=== PATIENT | male | born 1985 | race Caucasian/White ===

== ENCOUNTER 2016-10-06 10:27 | Inpatient (IN) | payer MEDICAID ==
[2016-10-06] MEDS ORDERED: IOPAMIDOL 300 (61%) 100 ML VIAL IV ONE (10:28)
[2016-10-06] MEDS ORDERED: SODIUM CHLORIDE 0.9% 1,000 ML ONE (11:32)
[2016-10-06] MEDS ORDERED: HYDROMORPHONE HCL 1 MG/ML SYRINGE ONE (11:32)
[2016-10-06] MEDS ORDERED: KETOROLAC TROMETHAMINE 30 MG/ML 1 ML VIAL ONE (11:32)
[2016-10-06] MEDS ORDERED: ONDANSETRON 4 MG/2ML 2 ML VIAL ONE (11:32)
[2016-10-06 11:44] LABS: ABSOLUTE NEUTROPHIL COUNT 11.1 K/mm3 (1.8-7.7); BASO % 0.1 % (0.2-1.0); EOS # 0.1 (0.0-0.5); EOS % 0.4 % (0.9-2.9); HEMATOCRIT 38.8 % (32.0-52.0); HEMOGLOBIN 13.1 gm/l (14.0-18.0); IMM NEUT # 0.1 K/mm3 (0-0.2); IMM NEUT% 0.5 % (0-1); LYMPH # 1.3 (1.0-4.8); LYMPH % 9.4 % (15-45); MEAN CELL VOLUME 92.8 fl (80.0-94.0); MEAN CORPUSCULAR HEMOGLOBIN 31.3 pg (27.0-31.0); MEAN CORPUSCULAR HGB CONC 33.8 g/dl (33.0-37.0); MEAN PLATELET VOLUME 9.8 fl (7.4-10.4); MONO # 1.3 (0.0-0.8); MONO % 9.4 % (4-12); NEUT % 80.2 % (43-75); PLATELET COUNT 323 K/mm3 (130-400)
[2016-10-06 11:54] LABS: ALB/GLOB RATIO 0.9 (>1.0); ALBUMIN 3.7 gm/dL (3.5-5.7); CALCIUM 10.2 mg/dL (8.6-10.3)
[2016-10-06 12:02] LABS: URINE BILIRUBIN 1+ (NEGATIVE); URINE BLOOD NEGATIVE (NEGATIVE); URINE GLUCOSE (UA) NEGATIVE (NEGATIVE); URINE LEUKOCYTE ESTERASE TRACE (NEGATIVE); URINE NITRITE NEGATIVE (NEGATIVE); URINE PROTEIN 1+ (NEGATIVE); URINE UROBILINOGEN 1 mg/dL (0-1 mg/dl)
[2016-10-06 12:04] LABS: URINE APPEARANCE CLEAR; URINE COLOR AMBER
[2016-10-06 12:24] LABS: URINE BACTERIA 0; URINE EPITHELIAL CELLS 0 /hpf; URINE RBC 0 /hpf
--- NOTE | 2016-10-06 12:24 | CT ---
ABD/PELVIS W/ CON COMPARISON: None. HISTORY: 31-year-old male with left lower quadrant pain, fever, increasing pain for 3 to 4 days. Diagnosed with diverticulitis last week. Technique: No oral contrast. Intravenous injection 100 mL Isovue 3 had. Using a [employer] [address] scanner, images were obtained from the diaphragm to the floor the pelvis. An automated dose reduction technique was used to minimize patient radiation dose. Dose information: CTDIvol (mGy): 13.00 DLP(mGycm): 740.20 FINDINGS: Lung bases: Normal. Inferior mediastinum and heart: Normal. Liver: Normal. Gallbladder:Normal. Bile ducts: Normal. Pancreas: Normal. Spleen: Normal. Adrenal glands: Normal. Kidneys: Normal. Ureters: Normal Urinary bladder: Normal. Prostate gland and seminal vesicles: Normal. Blood vessels: Normal Lymph nodes: Normal Stomach: Normal Duodenum: Normal Small intestine: Normal Appendix: Normal Colon: Sigmoid colon diverticulitis with an abscess, 5.5 x 3.5 x 3.9 cm. Abdominal wall and supporting musculature: Normal Bones: Normal IMPRESSION: Sigmoid colon diverticulitis with an abscess, 5.5 x 3.5 x 3.9 cm. The results were discussed with Boo Andujar M.D. 10/06/2016 at 12:20
[2016-10-06] MEDS ORDERED: PIPERACILLIN-TAZO PREMIX BAG 50 ML IV ONE (12:35)
[2016-10-06] MEDS ORDERED: METRONIDAZOLE 500 MG/NS 100 ML 100 ML IV ONE (12:35)
[2016-10-06 14:18] VITALS: BMI 26.5
[2016-10-06] MEDS ORDERED: SODIUM CHLORIDE 0.9% 1,000 ML IV ONE (15:43)
[2016-10-06] MEDS ORDERED: ONDANSETRON 4 MG/2ML 2 ML VIAL IV PRN (15:43)
[2016-10-06] MEDS ORDERED: ACETAMINOPHEN 325 MG TABLET PO PRN (15:43)
[2016-10-06] MEDS ORDERED: BLISTEX LIPSTICK 1 EACH TP PRN (15:43)
[2016-10-06] MEDS ORDERED: PUMP TUBING ONE (16:04)
[2016-10-06] MEDS ORDERED: HYDROMORPHONE HCL 0.5 MG/0.5 ML SYRINGE ONE (16:10)
[2016-10-06] MEDS ORDERED: HYDROMORPHONE HCL 0.5 MG/0.5 ML SYRINGE IV PRN (16:13)
[2016-10-06] MEDS: HYDROMORPHONE HCL 1 MG/ML SYRINGE IV PRN ×3 (16:14→21:06)
[2016-10-06] MEDS: D5 1/2NS 1,000 ML IV SCH ×2 (16:14→23:09)
[2016-10-06] MEDS: PIPERACILLIN-TAZO PREMIX BAG 3.375 G in Premix (D5W) 50 ml 1 EACH IV SCH (19:37)
--- NOTE | 2016-10-06 19:59 | CONS ---
HARJIT GOMEZ [id number] DATE OF SERVICE: 10/06/2016 This is an admission to [facility] and a consult for general surgery. HISTORY OF PRESENT ILLNESS: I had the pleasure of meeting Mr. Gomez today in [facility]. 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 He has no past medical history of note. He does not take any medications, other than a small amount of alcohol which he drinks socially, and has no allergies. Mr. Gomez presented to [facility] on 09/26/2016 or 09/27/2016. He was admitted to the hospital, found to have diverticulitis and was treated with a course of IV antibiotics. He was discharged home on 09/30/2016, with improvement of his symptoms, and was sent home with a prescription for Augmentin which he took until late on the 04 of October. Over the course of Mr. Gomez's treatment his pain initially resolved with initial IV antibiotics in the [facility]. He then stabilized and was determined well enough to discharge from the hospital, but on 10/02/2016 he had an increase of his pain despite treatment with Augmentin, which continues until his admission to [facility] today on 10/06/2016. PHYSICAL EXAMINATION: GENERAL: Mr. Gomez looks his stated age. ABDOMEN: Soft. He has no evidence of rebound or guarding. He does have pain to deep palpation in the left lower quadrant. CARDIAC: Normal. PULMONARY: Normal. LABS: On admission to [facility] his white count is 13.8, with a pronounced left shift. His sodium, potassium, chloride and anion gap are normal. His BUN is 6, with an estimated GFR of 112, suggesting that he has an element of dehydration, as well as slight increase in his AST and ALT. His urine dip is negative. IMAGING: Mr. Gomez has an approximately 3 1/2 x 4 cm pericolonic phlegmon in the region of the mid sigmoid. This does not appear to be matured as an abscess, and at this point I do not think it has drainable percutaneous drainage. This may develop over time. There is no evidence of free perforation or fluid within the abdominal cavity. ASSESSMENT/PLAN: I had a long discussion today with Mr. Gomez and reviewed the diagnosis of diverticulitis and the presence of his diverticular abscess. I discussed a treatment plan which includes IV antibiotics initially, with clear fluids for diet. I did discuss the need for potential emergency sigmoidectomy if his symptoms are to worsen and I reviewed the possibility of a colostomy if this was indicated. I also discussed the potential need for long-term management with a high-fiber diet and potential elective sigmoidectomy in the future if additional beds of diverticulitis were to develop. I did discuss previous episodes with Mr. Gomez and he felt that this was his first episode of diverticulitis, never having experienced the pain in the past. At this point I have admitted him to general surgery, started him on piperacillin and tazobactam, provided pain control and resuscitation for his elevated GFR and dehydration. We will follow him closely. If need be, we can proceed with surgery for a Marcus's resection if he deteriorates during his conservative management of his diverticulitis.
[2016-10-06] MEDS: SENNOSIDES 8.6 MG TABLET PO SCH (20:59)
[2016-10-06] MEDS: Heparin Sodium 5000 unit/0.5ml syringe SUB-Q SCH (21:00)
[2016-10-07] MEDS: HYDROMORPHONE HCL 1 MG/ML SYRINGE IV PRN ×3 (00:34→08:00)
[2016-10-07] MEDS: PIPERACILLIN-TAZO PREMIX BAG 3.375 G in Premix (D5W) 50 ml 1 EACH IV SCH ×4 (02:15→18:55)
[2016-10-07] MEDS: D5 1/2NS 1,000 ML IV SCH ×3 (06:03→19:35)
[2016-10-07 06:06] LABS: INR 1.04; PROTHROMBIN TIME 10.9 SECONDS (9.3-11.4)
[2016-10-07 06:11] LABS: ALB/GLOB RATIO 0.9 (>1.0); ALBUMIN 3.1 gm/dL (3.5-5.7); CALCIUM 9.4 mg/dL (8.6-10.3)
[2016-10-07] MEDS: OXYCODONE/ACETAMINOPHEN 5/325 MG TABLET PO PRN ×3 (08:00→21:27)
[2016-10-07] MEDS: Heparin Sodium 5000 unit/0.5ml syringe SUB-Q SCH ×2 (08:29→21:24)
[2016-10-07] MEDS: SENNOSIDES 8.6 MG TABLET PO SCH ×2 (08:29→21:24)
[2016-10-07] MEDS ORDERED: Heparin Sodium 5000 unit/0.5ml syringe SUB-Q SCH (13:48)
[2016-10-07] MEDS ORDERED: SODIUM CHLORIDE 0.9% FLUSH 10 ML ONE (14:23)
[2016-10-07] MEDS ORDERED: IV START KIT ONE (14:24)
[2016-10-08] MEDS: PIPERACILLIN-TAZO PREMIX BAG 3.375 G in Premix (D5W) 50 ml 1 EACH IV SCH ×2 (00:50→07:19)
[2016-10-08 05:44] LABS: ABSOLUTE NEUTROPHIL COUNT 3.6 K/mm3 (1.8-7.7); BASO % 0.7 % (0.2-1.0); EOS # 0.2 (0.0-0.5); EOS % 2.5 % (0.9-2.9); HEMATOCRIT 37.3 % (32.0-52.0); HEMOGLOBIN 12.2 gm/l (14.0-18.0); IMM NEUT% 0.7 % (0-1); LYMPH # 1.5 (1.0-4.8); LYMPH % 24.4 % (15-45); MEAN CELL VOLUME 93.7 fl (80.0-94.0); MEAN CORPUSCULAR HEMOGLOBIN 30.7 pg (27.0-31.0); MEAN CORPUSCULAR HGB CONC 32.7 g/dl (33.0-37.0); MEAN PLATELET VOLUME 9.5 fl (7.4-10.4); MONO # 0.6 (0.0-0.8); MONO % 10.4 % (4-12); NEUT % 61.3 % (43-75); PLATELET COUNT 273 K/mm3 (130-400)
[2016-10-08] MEDS: SENNOSIDES 8.6 MG TABLET PO SCH ×2 (08:53→20:35)
[2016-10-08] MEDS: Heparin Sodium 5000 unit/0.5ml syringe SUB-Q SCH ×2 (08:54→20:35)
[2016-10-08] MEDS ORDERED: CIPROFLOXACIN 500 MG TABLET PO ONE (09:44)
[2016-10-08] MEDS: D5 1/2NS 1,000 ML IV SCH (18:51)
[2016-10-08] MEDS: METRONIDAZOLE 500 MG TABLET PO SCH (20:34)
[2016-10-08] MEDS: CIPROFLOXACIN 500 MG TABLET PO SCH (20:35)
[2016-10-09 06:32] LABS: ABSOLUTE NEUTROPHIL COUNT 3.4 K/mm3 (1.8-7.7); BASO % 0.3 % (0.2-1.0); EOS # 0.1 (0.0-0.5); EOS % 1.7 % (0.9-2.9); HEMOGLOBIN 12.7 gm/l (14.0-18.0); IMM NEUT # 0.1 K/mm3 (0-0.2); IMM NEUT% 1.2 % (0-1); LYMPH # 1.6 (1.0-4.8); LYMPH % 27.7 % (15-45); MEAN CELL VOLUME 91.6 fl (80.0-94.0); MEAN CORPUSCULAR HEMOGLOBIN 30.6 pg (27.0-31.0); MEAN CORPUSCULAR HGB CONC 33.4 g/dl (33.0-37.0); MEAN PLATELET VOLUME 9.8 fl (7.4-10.4); MONO # 0.6 (0.0-0.8); MONO % 9.6 % (4-12); NEUT % 59.5 % (43-75); PLATELET COUNT 318 K/mm3 (130-400)
[2016-10-09 07:45] VITALS: BP 129/92
[2016-10-09 08:10] LABS: BAND 0 % (0-10); BASOPHIL 2 % (0-1); EOSINOPHIL 1 % (1-3); LYMPHOCYTE 22 % (15-45); MONOCYTE 10 % (4-12); NEUTROPHILS 65 % (43-75); PLATELET ESTIMATE NORMAL (NORMAL); TOTAL CELLS COUNTED 100
[2016-10-09] MEDS: SENNOSIDES 8.6 MG TABLET PO SCH (08:44)
[2016-10-09] MEDS: METRONIDAZOLE 500 MG TABLET PO SCH (08:44)
[2016-10-09] MEDS: CIPROFLOXACIN 500 MG TABLET PO SCH (08:44)
[2016-10-09] MEDS: Heparin Sodium 5000 unit/0.5ml syringe SUB-Q SCH (08:45)
--- NOTE | 2016-10-10 09:56 | DS ---
HARJIT GOMEZ DATE OF ADMISSION: October 06, 2016 DATE OF DISCHARGE: October 09, 2016 Mr. Gomez is a 31-year-old gentleman who was admitted to [facility] with recurrence with acute diverticulitis. He was admitted to the hospital in the [facility] with what appeared to be acute diverticulitis. He underwent IV antibiotic treatment and improved. He was discharged home in a timely fashion as he started to recover from his acute diverticulitis. He went home on Augmentin, continued his treatment with antibiotics but over the few days after his discharge, he had a slow increase in pain ultimately requiring him to return to the hospital. On his admission to [facility], he had increased abdominal pain and elevation in his white count. A CAT scan was done which revealed mid sigmoid diverticulitis with a peridiverticular phlegmon consistent with an early abscess. I did not feel the abscess was drainable at this point and treated him conservatively with tazobactam/piperacillin antibiotics. With pain control and IV antibiotics, his pain resolved quickly. His white count dropped to the normal range. Once his white count was in the normal range, I then started him on ciprofloxacin and kept him an additional day. I repeated his WBC to insure that his white count and his symptoms resolved on oral antibiotics. He appeared to be doing well, and he will be discharged home today in a timely fashion. DISCHARGE MEDICATIONS: Ciprofloxacin antibiotics. FOLLOWUP: For management of his acute diverticulitis.
== END 2016-10-09 10:31 | disposition home or self-care (01) | DRG 392 ==
LOC: ED 10:27 → MS 12:40
PROVIDERS: ADMIT Surgery; ATTEND Surgery
DX: K57.32 Diverticulitis of large intestine without perforation or abscess without bleeding (principal); K63.0 Abscess of intestine